=== PATIENT | male | born 1955 | race Caucasian/White ===

== ENCOUNTER → 2020-08-07 11:09 | Outpatient (REF) | payer OTHER, SELFPAY | LOC: ANHLAB 11:09 | PROVIDERS: PCP Family Medicine; Visit Provider Nurse Practitioner | DX: C44.319 Basal cell carcinoma of skin of other parts of face (principal) | CPT/HCPCS: 88305 ==

== ENCOUNTER → 2020-08-20 09:20 | Outpatient (REF) | payer OTHER, SELFPAY | LOC: ANHLAB 09:20 | PROVIDERS: PCP Family Medicine; Visit Provider Nurse Practitioner | DX: C44.319 Basal cell carcinoma of skin of other parts of face (principal) | CPT/HCPCS: 88305; 88331 ==

== ENCOUNTER → 2021-08-27 15:02 | Outpatient (REF) | payer OTHER, SELFPAY | LOC: ANHLAB 15:02 | PROVIDERS: PCP Family Medicine; Visit Provider Nurse Practitioner | DX: I87.2 Venous insufficiency (chronic) (peripheral) (principal) | CPT/HCPCS: 88305 ==

== ENCOUNTER 2022-09-09 08:00 | Outpatient (NON) | payer OTHER, SELFPAY | END 2022-09-09 08:01 | disposition home or self-care (01) | LOC: ANHLAB 09-10 11:49 | PROVIDERS: PCP Family Medicine; Visit Provider Nurse Practitioner | DX: L57.0 Actinic keratosis (principal) | CPT/HCPCS: 88305 ==

== ENCOUNTER 2023-03-18 09:55 | Outpatient (CLI) | payer OTHER, SELFPAY ==
--- NOTE | 2023-03-18 | ECG_ITS ---
Measurements Intervals [place] Rate: 46 P: 46 KS: 157 QRS: 47 QRSD: 101 T: 43 QT: 416 QTc: 367 Interpretive Statements SINUS BRADYCARDIA WITH SINUS ARRHYTHMIA ABNORMAL ECG NO PREVIOUS ECG AVAILABLE FOR COMPARISON Electronically Signed On 03-18-2023 10:39:48 SYSTEMS OPERATOR by Nicko Steven D.O.
[2023-03-18 10:50] LABS: Hematocrit 44.2 % (42.0-52.0); Hemoglobin 14.5 g/dL (14.0-18.0); Mean Corpuscular HGB Conc 32.8 g/dl (32-36); Mean Corpuscular Hemoglobin 29.8 pg (26-34); Mean Corpuscular Volume 90.8 fl (80-100); Mean Platelet Volume 10.5 fl (7.4-10.4); Platelet Count Result 196 k/mm3 (150-375); Red Blood Count 4.87 M/mm3 (4.6-6.20); Red Cell Distribution Width 13.7 % (11.5-14.5); White Blood Count 5.7 K/mm3 (4.5-10.0)
[2023-03-18 11:06] LABS: Anion Gap 10 mmol/L (8-16); Blood Urea Nitrogen 18 mg/dL (9-20); Calcium 8.9 mg/dL (8.4-10.2); Carbon Dioxide 27 mmol/L (22-30); Chloride 103 mmol/L (98-107); Estimated Glomerular Filt Rate > 60; Glucose 92 mg/dL (65-110); Potassium 4.4 mmol/L (3.4-5.0); Sodium 140 mmol/L (137-145)
== END 2023-03-18 09:56 | disposition home or self-care (01) ==
PROVIDERS: PCP Family Medicine
DX: N40.1 Benign prostatic hyperplasia with lower urinary tract symptoms (principal); Z01.810 Encounter for preprocedural cardiovascular examination
CPT/HCPCS: 36415; 80048; 85027; 87086; 93005

== ENCOUNTER 2024-02-10 08:19 | Day surgery (SDC) | payer OTHER, SELFPAY ==
[2024-01-06 14:47] VITALS: BMI 28.4
[2024-01-22 11:30] VITALS: BMI 28.5
--- NOTE | 2024-02-10 06:58 | P.PNAN_ITS ---
Anes - Initial Pre Proc Eval Procedure: Operation Date: 02/10/24 10:00 Proposed Procedures p Diagnostic Colonoscopy - Dave Arenas MD Date/Time: 02/10/24 06:58 Surgeon: Dave Arenas MD Pre Op Diagnosis: Family History of Colon Cancer Patient Data Age: 68 Gender: M Height: 1.8 m Weight: 92.8 kg Allergies Allergy/AdvReac Type Severity Reaction Status Date / Time No Known Allergies Allergy Verified 02/10/24 08:36 Home Medications Medication Instructions Recorded Confirmed Type cholecalciferol (vitamin D3) 50 50 mcg PO DAILY 12/13/21 02/10/24 History mcg (2,000 unit) capsule omega-3 fatty acids 500 mg PO DAILY 12/13/21 02/10/24 History zinc gluconate 30 mg tablet 30 mg PO DAILY 12/13/21 02/10/24 History boron citrate 3 mg tablet 3 mg PO DAILY 12/18/22 02/10/24 History ascorbic acid (vitamin C) 500 mg 500 mg PO DAILY 01/22/24 02/10/24 History tablet multivitamin with minerals-folic 1 tablet PO DAILY 01/22/24 02/10/24 History acid 0.4 mg tablet Patient hx anesthesia problems: none Family hx anesthesia problems: none Results Review: All pre-operative results and documents have been reviewed as part of the pre- operative evaluation. [facility], [facility] Past Medical History Medical History BPH (benign prostatic hyperplasia) Eczema FH: CAD (coronary artery disease) FH: colon cancer FH: prostate cancer Surgical History Surgical History History of tonsillectomy Family History Family History Mother Patient's mother is , Onset Age: 86 Family history of emphysema, Onset Age: 86 Sibling Patient's brother is in good health Father Family history of lung cancer, Onset Age: 74 Social History Social History Smoking status: Never smoker Second hand tobacco smoke exposure: No Alcohol intake: current Drinks per week: 8 Substance use: never Substance use type: does not use Living arrangements: with family Gender identity (if verbalized by the patient): Male Spiritual care concerns: No Agree to blood products: Yes Anes - Eval Final PreProcedure Day of Procedure 02/10/24 06:58 Patient weight: overweight Heart: regular rate and rhythm Lungs: clear to auscultation Airway: Mallampati scale class II Neurological: alert and oriented Last oral intake: >/= 8 hours ASA classification: II Emergent: no Anesthetic plan: proceed Anesthesia type and monitoring: general GIVS and standard monitoring Results Review: All pre-operative results and documents have been reviewed as part of the pre- operative evaluation. Informed Consent: The patient's anesthetic plan and its attendant risks and benefits were discussed with the patient/family/POA. Questions were solicited and answers pr ovided to the satisfaction of the patient/family/POA.
[2024-02-10 08:37] VITALS: BP 143/89; PULSE 53; RESP 16; TEMP 36.2; O2SAT 99
[2024-02-10] MEDS: LACTATED RINGERS 1,000 ML 150 ML IV CONT (08:40)
--- NOTE | 2024-02-10 08:44 | PM.HPGS ---
History of Present Illness History of Present Illness Consent: Risks, benefits, and alternatives have been discussed and questions answered. Patient agrees to proceed with procedure. Chief complaint: Family History of Colon Cancer Narrative: Reji Ferrer is a 68 year old male presents for screening colonoscopy. Patient's current weight appetite and bowel movements are normal. Patient denies abdominal pain. He has had no bleeding. Significant that his father had colon cancer. His previous colonoscopies have never revealed colon polyps. Review of Systems Review of Systems: All systems reviewed & are unremarkable except as noted in HPI and below PMFSH Past Medical History Medical History BPH (benign prostatic hyperplasia) Eczema FH: CAD (coronary artery disease) FH: colon cancer FH: prostate cancer Surgical History Surgical History History of tonsillectomy Family History Family History Mother Patient's mother is , Onset Age: 86 Family history of emphysema, Onset Age: 86 Sibling Patient's brother is in good health Father Family history of lung cancer, Onset Age: 74 Social History Social History Smoking status: Never smoker Second hand tobacco smoke exposure: No Alcohol intake: current Drinks per week: 8 Substance use: never Substance use type: does not use Living arrangements: with family Gender identity (if verbalized by the patient): Male Spiritual care concerns: No Agree to blood products: Yes Meds Home Medications and Allergies Home Medications Medication Instructions Recorded Confirmed Type cholecalciferol (vitamin D3) 50 50 mcg PO DAILY 12/13/21 02/10/24 History mcg (2,000 unit) capsule omega-3 fatty acids 500 mg PO DAILY 12/13/21 02/10/24 History zinc gluconate 30 mg tablet 30 mg PO DAILY 12/13/21 02/10/24 History boron citrate 3 mg tablet 3 mg PO DAILY 12/18/22 02/10/24 History ascorbic acid (vitamin C) 500 mg 500 mg PO DAILY 01/22/24 02/10/24 History tablet multivitamin with minerals-folic 1 tablet PO DAILY 01/22/24 02/10/24 History acid 0.4 mg tablet Allergies Allergy/AdvReac Type Severity Reaction Status Date / Time No Known Allergies Allergy Verified 02/10/24 08:36 Vital Signs Vital Signs - 24 hr 02/10/24 08:37 Temperature 97.2 F L Pulse Rate 53 L Respiratory Rate 16 Blood Pressure 143/89 H Pulse Oximetry 99 Oxygen Delivery Room Air Exam Narrative: Physical exam reveals patient vital signs stable. HEENT exam is unremarkable. Patient is anicteric. Lungs are clear to auscultation and to percussion. Is without murmur or extra sounds. Abdomen bowel sounds are present soft nontender with no organomegaly. Digital external rectal exam normal. Assessment and Plan Assessment and plan (1) FH: colon cancer: Code(s): Z80.0 - Family history of malignant neoplasm of digestive organs Status: Acute Assessment and Plan: Patient's father had colon cancer. Plan for patient to have screening colonoscopies at 5 year intervals. Patient currently has no symptoms.
[2024-02-10 09:59] VITALS: BP 100/66; PULSE 55; RESP 16; O2SAT 97
[2024-02-10 10:09] VITALS: BP 122/50; PULSE 52; RESP 16; O2SAT 97
[2024-02-10 10:19] VITALS: BP 122/68; PULSE 50; RESP 15; O2SAT 99
--- NOTE | 2024-02-10 12:32 | WPDANESPN ---
Anes - Prog Note Post-Op Date/Time: 02/10/24 12:32 Cardiovascular status: normal Respiratory status: normal Airway patency: baseline Mental status: baseline Post-Op hydration status: normal Vital Signs: Last Vital Signs Temp 36.2 C L 02/10/24 08:37 Pulse 50 L 02/10/24 10:19 Resp 15 02/10/24 10:19 BP 122/68 02/10/24 10:19 Pulse Ox 99 02/10/24 10:19 O2 Del Method Room Air 02/10/24 10:19 Pain Score (VAS): 0 I/O: Intake & Output 02/09/24 02/10/24 02/10/24 23:59 07:59 15:59 Intake Total 600 Balance 600 Post-procedural complaints: none Patient Feedback: Patient satisfied with anesthetic care. Other Findings: Patient vital signs back to baseline. Patient denies nausea and vomiting. Patient's pain under control. Patient OK for discharge.
== END 2024-02-10 10:32 | disposition home or self-care (01) ==
PROVIDERS: PCP Family Medicine; Visit Provider Internal Medicine Gastroenterology
PROC: 0DJD8ZZ Inspection of Lower Intestinal Tract, Via Natural or Artificial Opening Endoscopic (ICD-10-PCS; CPT 45378; principal; 2024-02-10 10:00)
DX: Z80.0 Family history of malignant neoplasm of digestive organs (principal); K64.8 Other hemorrhoids
CPT/HCPCS: 45378